=== PATIENT | female | born 1955 | race Caucasian/White ===

== ENCOUNTER 2021-01-08 13:02 | Inpatient (IN) | payer OTHER ==
[~2021-01-08] VITALS: Ht 170.2 cm; Wt 63.5 kg
[2021-01-08 13:24] LABS: HEMOGLOBIN 12.8 gm/dl (12.3-15.3); RED BLOOD COUNT 3.91 M/UL (4.00-5.10); WHITE BLOOD COUNT 8.2 K/UL (4.5-11.0)
[2021-01-08 13:44] LABS: BUN/CREATININE RATIO 16 (0-10)
--- NOTE | 2021-01-09 11:47 | NUR ---
PATIENT GOT CHEST TUBE CAUGHT BETWEEN MATRESS AND BED RAIL SHE TURNED OVER. CHEST TUBE WAS PULLED, BUT NOT PULLED OUT. THERE WAS SOME BLEEDING AT SIGHT AND GUZE AND VASOLINE GUAZE WERE DISLOGED AND THE TEGADERM BANDAGE ROLLED UP AT CORNERS AROUND CHEST TUBE. RESOURCE NURSE WAS NOTIFIED FOR ASSISTANCE CHANGEING DRESSING AND DID SO. NEW VASOLINE GAUZE, 4X4'S AND A NEW TEGADERM DRESSING WERE PUT IN PLACE AFTER AREA HAD BEEN CLEENED USING STERILE TECHNIQUE WITH CHLORAPREP. DR SANABRIA WAS NOTIFIED BY RESOURCE NURSE. DR. SANABRIA ORDERED TO SWITCH CHEST TUBE FROM DIRECT SUCTION TO WATER SEAL AND MONITOR PATIENT FOR SORTNESS OF AIR. PATITIENT WAS SWITCHED TO WATER SEAL WITH NO SIGNS OF DISTRESS. WILL CONTINUE TO MONITOR.
[2021-01-09] MEDS ORDERED: LEVOTHYROXINE125 MC1 PO (19:05)
[2021-01-09] MEDS ORDERED: LEXAPRO20 MG PO (19:06)
[2021-01-09] MEDS ORDERED: EXEMESTANE25 MG PO (19:06)
== END 2021-01-13 15:15 | disposition home or self-care (01) | DRG 200 ==
LOC: ER1 13:02 → M/S 15:46 → CDU 15:46 → M/S 17:31
PROVIDERS: Emergency Medicine; ADMIT Surgery
PROC: 0W9930Z Drainage of Right Pleural Cavity with Drainage Device, Percutaneous Approach (ICD-10-PCS; principal; 2021-01-08)
DX: S27.0XXA Traumatic pneumothorax, initial encounter (principal); S22.41XA Multiple fractures of ribs, right side, initial encounter for closed fracture; S42.001A Fracture of unspecified part of right clavicle, initial encounter for closed fracture; V80.010A Animal-rider injured by fall from or being thrown from horse in noncollision accident, initial encounter
CPT/HCPCS: 70450; 71045; 71046; 71260; 72125; 72128; 72131; 73030; 80053; 80307; 81001; 82550; 82553; 83605; 83874; 84484; 85025; 85610; 85730; 86850; 86900; 86901; 94760; 96374; 96375; 99285; A6212; G0480; J1650; J2270; J2405; J2550; Q9967; U0002